=== PATIENT | male | born 1995 | race Caucasian/White ===

== ENCOUNTER 2017-10-09 21:25 | Emergency (ER) | payer BC ==
[~2017-10-09] VITALS: Ht 188 cm; Wt 93.2 kg
[2017-10-09 21:30] VITALS: TEMP 98.5
[2017-10-09 23:17] VITALS: BP 110/63; PULSE 79
== END 2017-10-09 23:18 | disposition home or self-care (01) ==
LOC: COL.ER 21:25
DX: S93.491A Sprain of other ligament of right ankle, initial encounter (principal); X50.1XXA Overexertion from prolonged static or awkward postures, initial encounter; Y92.310 Basketball court as the place of occurrence of the external cause